=== PATIENT | female | born 1955 | race Caucasian/White ===

== ENCOUNTER → 2017-05-15 | Outpatient (CLI) | payer SELFPAY ==
--- NOTE | 2017-05-16 06:49 | US ---
Procedure: US ABDOMEN Exam Date: 05/15/2017 Ordering Provider: WALTER ABARCA IV Clinical Indication: ABD PAIN Comparison: None Technique: Real-time ultrasonography was obtained over the abdominal viscera and account maintenance representative images were recorded. Findings: The liver is normal in size and contour. There is normal echogenicity throughout the liver. There are no intrahepatic masses. There is no intrahepatic ductal dilatation. The gallbladder is normal in size and appearance. There are no gallstones. There is no gallbladder wall thickening or pericholecystic fluid. The extrahepatic common duct is normal in size measuring 3.7 mm. The spleen is normal in size and contour. There is normal internal echogenicity of the spleen. There are no splenic masses. The visualized portions of the pancreas are normal. The aorta has a normal appearance. The inferior vena cava has a normal appearance. The right kidney is normal in size and contour. The right kidney measures 9.4 cm in bipolar length. Cortical thickness and echogenicity are normal. There are no masses, calculi, or hydronephrosis. The left kidney is normal in size and contour. The left kidney measures 9.6 cm in bipolar length. Cortical thickness and echogenicity are normal. There are no masses, calculi, or hydronephrosis. There is no ascites. Impression: Negative abdominal ultrasound. Electronically signed by: Satinder Garza MD 05/16/2017 6:48 AM [facility]
== END | disposition home or self-care (01) ==
LOC: LAB.O 16:01
PROVIDERS: ATTEND Nurse Practitioner Family
DX: R10.84 Generalized abdominal pain (principal)